=== PATIENT | male | born 1980 | race African-American/Black ===

== ENCOUNTER → 2017-10-07 | Outpatient (CLI) | payer MEDICARE ==
[2017-10-07 15:18] LABS: Basophils % (A) 1 %; CH 30.2; Eosinophils # (A) 0.1 k/uL (0-0.7); Eosinophils % (A) 2 %; HCT 43.7 % (39.0-53.0); HDW 2.02; HGB 13.4 gm/dL (13.0-17.5); Hypochromasia Moderate; Luc # (Auto) 0.07; Luc % (Auto) 2; Lymphocytes # (A) 1.3 k/uL (1.0-4.8); Lymphocytes % (A) 31 %; MCH 31.1 pg (25.0-35.0); MCHC 30.8 g/dL (31.0-37.0); Macrocytosis Slight; Mean Platelet Volume 8.7; Monocytes # (A) 0.2 k/uL (0-1.0); Monocytes % (A) 5 %; Neutrophils # (A) 2.5 k/uL (1.3-7.7); Neutrophils % (A) 60 %; RBC 4.32 m/uL (4.30-5.90); RDW 13.9 % (11.5-15.5); WBC 4.1 k/uL (3.8-10.6); WBC (Perox) 4.28
== END | disposition home or self-care (01) ==
LOC: LABWHC1 14:44
PROVIDERS: ATTEND Nurse Practitioner
DX: F71 Moderate intellectual disabilities (principal); Z79.899 Other long term (current) drug therapy
CPT/HCPCS: 36415; 85025

== ENCOUNTER → 2020-04-14 | Outpatient (CLI) | payer MEDICARE ==
[2020-04-14 10:30] LABS: Basophils % (A) 0 %; Eosinophils # (A) 0.1 k/uL (0-0.7); Eosinophils % (A) 3 %; HGB 14.3 gm/dL (13.0-17.5); Hypochromasia Slight; Lymphocytes # (A) 1.7 k/uL (1.0-4.8); Lymphocytes % (A) 44 %; MCH 30.4 pg (25.0-35.0); MCHC 31.1 g/dL (31.0-37.0); Mean Platelet Volume 8.3; Monocytes # (A) 0.3 k/uL (0-1.0); Monocytes % (A) 6 %; Neutrophils # (A) 1.8 k/uL (1.3-7.7); Neutrophils % (A) 45 %; Platelet Count 147 k/uL (150-450); RDW 12.6 % (11.5-15.5)
[2020-04-14 15:31] LABS: ALT 31 U/L (10-49); AST 25 U/L (14-35); African American GFR (CKD) 109.4 (60.0-200.0); Albumin/Globulin Ratio 1.65 (1.60-3.17); Alkaline Phosphatase 57 U/L (41-126); Calcium 9.4 mg/dL (8.7-10.3); Carbon Dioxide 32.9 mmol/L (21.6-31.8); Chloride 105 mmol/L (96-109); Chol/HDL Ratio 2.03; Cholesterol 120 mg/dL (0-200); Globulin 2.3 g/dL (1.6-3.3); Glucose 100 mg/dL (70-110); Non-African American GFR(CKD) 94.4 (60.0-200.0); Potassium 4.8 mmol/L (3.5-5.5); Sodium 148 mmol/L (135-145); Total Bilirubin 0.5 mg/dL (0.3-1.2); Total Protein 6.1 g/dL (6.2-8.2); Triglycerides <50.0 mg/dL (0.0-149.0)
[2020-04-14 15:45] LABS: Valproic Acid (Depakene) 71.9 ug/mL (50.0-100.0)
[2020-04-14 16:26] LABS: Hemoglobin A1C 7.7 % (4.0-6.0)
[2020-04-14 16:38] LABS: Urine Creatinine 169.7 mg/dL
== END | disposition home or self-care (01) ==
LOC: LABWHC1 08:28
PROVIDERS: ATTEND Internal Medicine Endocrinology, Diabetes & Metabolism
DX: E11.65 Type 2 diabetes mellitus with hyperglycemia (principal); Z79.899 Other long term (current) drug therapy
CPT/HCPCS: 36415; 80053; 80061; 80164; 82043; 82248; 82570; 83036; 84439; 84443; 85025

== ENCOUNTER → 2020-12-04 | Outpatient (CLI) | payer MEDICARE ==
[2020-12-04 08:59] LABS: Basophils % (A) 1 %; Eosinophils # (A) 0.1 k/uL (0-0.7); Eosinophils % (A) 1 %; HCT 47.2 % (39.0-53.0); HGB 14.7 gm/dL (13.0-17.5); Hypochromasia Slight; Lymphocytes # (A) 2.3 k/uL (1.0-4.8); Lymphocytes % (A) 55 %; MCH 30.1 pg (25.0-35.0); MCV 97.1 fL (80.0-100.0); Mean Platelet Volume 8.2; Monocytes # (A) 0.3 k/uL (0-1.0); Monocytes % (A) 6 %; Neutrophils # (A) 1.5 k/uL (1.3-7.7); Neutrophils % (A) 36 %; Platelet Count 143 k/uL (150-450); RBC 4.86 m/uL (4.30-5.90); RDW 12.7 % (11.5-15.5); WBC 4.2 k/uL (3.8-10.6)
[2020-12-04 17:25] LABS: Hemoglobin A1C 7.9 % (4.0-6.0)
[2020-12-04 17:48] LABS: ALT 62 U/L (10-49); AST 43 U/L (14-35); African American GFR (CKD) 108.6 (60.0-200.0); Albumin/Globulin Ratio 2.05 (1.60-3.17); Alkaline Phosphatase 62 U/L (41-126); Calcium 9.4 mg/dL (8.7-10.3); Carbon Dioxide 33.7 mmol/L (21.6-31.8); Chloride 103 mmol/L (96-109); Chol/HDL Ratio 2.41; Cholesterol 135 mg/dL (0-200); Globulin 2.1 g/dL (1.6-3.3); Glucose 101 mg/dL (70-110); Non-African American GFR(CKD) 93.7 (60.0-200.0); Potassium 4.6 mmol/L (3.5-5.5); Sodium 143 mmol/L (135-145); Total Bilirubin 0.7 mg/dL (0.3-1.2); Total Protein 6.4 g/dL (6.2-8.2); Triglycerides <50.0 mg/dL (0.0-149.0); Valproic Acid (Depakene) 95.6 ug/mL (50.0-100.0)
[2020-12-05 02:09] LABS: Urine Creatinine 327.8 mg/dL
== END | disposition home or self-care (01) ==
LOC: LABWHC1 08:05
PROVIDERS: ATTEND Nurse Practitioner Family
DX: E11.65 Type 2 diabetes mellitus with hyperglycemia (principal); Z79.899 Other long term (current) drug therapy
CPT/HCPCS: 36415; 80053; 80061; 80164; 82043; 82248; 82570; 83036; 84439; 84443; 85025

== ENCOUNTER → 2021-03-19 | Outpatient (CLI) | payer MEDICARE ==
[2021-03-19 16:34] LABS: ALT 38 U/L (10-49); AST 30 U/L (14-35); African American GFR (CKD) 123.4 (60.0-200.0); Alkaline Phosphatase 64 U/L (41-126); BUN/Creat Ratio 18.89 Ratio (12.00-20.00); Calcium 9.4 mg/dL (8.7-10.3); Carbon Dioxide 34.4 mmol/L (21.6-31.8); Chloride 98 mmol/L (96-109); Chol/HDL Ratio 2.43; Cholesterol 136 mg/dL (0-200); Globulin 2.1 g/dL (1.6-3.3); Glucose 131 mg/dL (70-110); Non-African American GFR(CKD) 106.5 (60.0-200.0); Potassium 4.3 mmol/L (3.5-5.5); Sodium 137 mmol/L (135-145); Total Bilirubin 0.5 mg/dL (0.2-1.2); Total Protein 6.3 g/dL (6.2-8.2); Triglycerides <50.0 mg/dL (0.0-149.0)
[2021-03-19 17:08] LABS: Hemoglobin A1C 7.7 % (4.0-6.0)
[2021-03-20 15:36] LABS: Urine Creatinine 105.8 mg/dL
== END | disposition home or self-care (01) ==
LOC: LABWHC1 08:45
PROVIDERS: ATTEND Internal Medicine Endocrinology, Diabetes & Metabolism
DX: E11.65 Type 2 diabetes mellitus with hyperglycemia (principal)
CPT/HCPCS: 36415; 80053; 80061; 82043; 82570; 83036; 84443

== ENCOUNTER → 2021-06-22 | Outpatient (CLI) | payer MEDICARE | END | disposition home or self-care (01) | LOC: LABWHC1 08:26 | PROVIDERS: ATTEND Nurse Practitioner Family | DX: Z79.899 Other long term (current) drug therapy (principal) | CPT/HCPCS: 36415; 80164 ==

== ENCOUNTER 2021-11-05 09:20 | Emergency (ER) | payer MEDICARE, OTHER ==
[2021-11-05 09:44] VITALS: PULSE 90; TEMP 98.6
--- NOTE | 2021-11-05 09:54 | ED ---
General Adult HPI - General Chief complaint: Upper Respiratory Infection Stated complaint: Covid+/antibodies Time Seen by Provider: 11/05/21 09:38 Source: patient, family Mode of arrival: ambulatory Limitations: no limitations - History of Present Illness Initial comments: Dictation was produced using [employer] dictation software. please excuse any gr ammatical, word or spelling errors. Chief Complaint: 41-year-old male presents emergency Department requesting monoclonal antibody infusion History of Present Illness: Is a 41-year-old male who presents with caregiver. Patient lives at a residential. He has history of mental debility. He complained to residential staff that he can't taste or smell. He is vaccinated. Patient has been having symptoms for the last 2 days. Caregiver notices that patient has not had any coughing or signs of respiratory distress. After he complained to nursing staff that he could taste or smell they performed a at home covered test which was positive The ROS documented in this emergency department record has been reviewed and confirmed by me. Those systems with pertinent positive or negative responses have been documented in the HPI. All other systems are other negative and/or noncontributory. PHYSICAL EXAM: General Impression: Alert and oriented x3, not in acute distress HEENT: Normocephalic atraumatic, extra-ocular movements intact, pupils equal and reactive to light bilaterally, mucous membranes moist. Cardiovascular: Heart regular rate and rhythm Chest: Able to complete full sentences, no retractions, no tachypnea Abdomen: abdomen soft, non-tender, non-distended, no organomegaly Musculoskeletal: Pulses present and equal in all extremities, no peripheral edema Motor: no focal deficits noted Neurological: CN II-XII grossly intact, no focal motor or sensory deficits noted Skin: Intact with no visualized rashes Psych: Normal affect and mood ED course: 41-year-old male presents to the emergency department for monoclonal antibody infusion. Vital signs upon arrival are within acceptable limits. Patient cry virus positive use given monoclonal antibodies. Observed in emergency department for one hour. Patient stable for discharge. - Related Data Home Medications Medication Instructions Recorded Confirmed ARIPiprazole [Abilify] 30 mg PO HS 11/05/21 11/05/21 Insulin Detemir [Levemir Flextouch 15 units SQ HS 11/05/21 11/05/21 Pen] Liraglutide [Victoza 3-Ike] 1.8 mg SQ DAILY 12/06/21 12/06/21 lisinopriL [Zestril] 5 mg PO DAILY 11/05/21 11/05/21 metFORMIN HCL [Glucophage] 1,000 mg PO BID 11/05/21 11/05/21 sitaGLIPtin [Januvia] 100 mg PO DAILY 11/05/21 11/05/21 Allergies Allergy/AdvReac Type Severity Reaction Status Date / Time No Known Allergies Allergy Verified 11/05/21 10:48 Review of Systems ROS Statement: Those systems with pertinent positive or pertinent negative responses have been documented in the HPI. ROS Other: All systems not noted in ROS Statement are negative. Past Medical History Past Medical History: No Reported History History of Any Multi-Drug Resistant Organisms: None Reported Past Surgical History: No Surgical Hx Reported Past Psychological History: Anxiety Smoking Status: Never smoker Past Alcohol Use History: None Reported Past Drug Use History: None Reported General Exam Limitations: no limitations Course Vital Signs 11/05/21 09:31 Temperature 98.6 F Pulse Rate 90 Respiratory 18 Rate Blood Pressure 113/80 O2 Sat by Pulse 99 Oximetry Medical Decision Making - Lab Data Lab Results 11/05/21 Range/Units 09:56 Coronavirus (PCR) Detected A (Not Detectd) Disposition Clinical Impression: COVID-19 Disposition: HOME SELF-CARE Condition: Good Instructions (If sedation given, give patient instructions): Coronavirus Disease 2019 (COVID-19) Is patient prescribed a controlled substance at d/c from ED?: No Referrals: None,Stated [Primary Care Provider] - 1-2 days
[2021-11-05] MEDS ORDERED: SODIUM CHLORIDE 0.9% 50 ML IVPB ONE (10:15)
[2021-11-05] MEDS ORDERED: SOTROVIMAB (EUA) 500 MG in SODIUM CHLORIDE 0.9% 100 ML IVPB ONE (10:30)
[2021-11-05 12:15] VITALS: BP 111/88; RESP 16
== END 2021-11-05 12:15 | disposition home or self-care (01) ==
LOC: EC 09:20
DX: U07.1 COVID-19 (principal); F41.9 Anxiety disorder, unspecified; Z79.4 Long term (current) use of insulin; Z79.84 Long term (current) use of oral hypoglycemic drugs
CPT/HCPCS: 99283; 87635; Q0247